=== PATIENT | male | born 1960 | race Caucasian/White ===

== ENCOUNTER → 2018-06-02 17:16 | Outpatient (REF) | payer BC, SELFPAY | LOC: LAB 17:16 | PROVIDERS: Visit Provider Podiatrist | DX: L60.8 Other nail disorders (principal) | CPT/HCPCS: 87102; 87206; 87220 ==

== ENCOUNTER → 2018-06-09 09:09 | Outpatient (CLI) | payer BC, SELFPAY | PROVIDERS: PCP Internal Medicine; Visit Provider Podiatrist | DX: Z71.3 Dietary counseling and surveillance (principal); E66.9 Obesity, unspecified | CPT/HCPCS: 97802; G0108 ==

== ENCOUNTER → 2018-07-13 14:38 | Outpatient (POV) | payer BC, SELFPAY | PROVIDERS: PCP Internal Medicine; Visit Provider Specialist | DX: M79.671 Pain in right foot (principal); M79.672 Pain in left foot; R20.0 Anesthesia of skin; R20.8 Other disturbances of skin sensation | CPT/HCPCS: 95886; 95910 ==